=== PATIENT | female | born 1950 | race Caucasian/White ===

== ENCOUNTER 2018-09-10 10:53 | Outpatient (CLI) | payer MEDICARE ==
--- NOTE | 2018-09-10 11:36 | MMO ---
BILATERAL SCREENING MAMMOGRAM: DATE: 09/10/18 HISTORY: 68-year-old female for screening mammography. COMPARISON: 05/01/17. FINDINGS: Bilateral MLO and CC views of the breasts show scattered fibroglandular breast tissue. There is no ev idence of suspicious mass, suspicious cluster of microcalcifications, or area of architectural distor tion. Interpretation of this mammogram was performed with the assistance of computer-aided detection. IMPRESSION: BIRADS 1: Negative Annual screening mammography is recommended. POS: [facility]
== END 2018-09-10 10:54 | disposition home or self-care (01) ==
LOC: SCSMAMMO 10:53
PROVIDERS: ATTEND Family Medicine
DX: Z12.31 Encounter for screening mammogram for malignant neoplasm of breast (principal)
CPT/HCPCS: 77067